=== PATIENT | female | born 1980 | race Caucasian/White ===

== ENCOUNTER 2021-12-20 15:56 | Outpatient (CLI) | payer BC, SELFPAY ==
[2021-12-20 18:37] LABS: HIV 1/2/P24 Combo Screen* Negative (Negative)
[2021-12-20 19:51] LABS: GC DNA Amplified* NOT DETECTED (No Detected)
[2021-12-20 20:32] LABS: Chlamydia DNA Amplified* DETECTED (No Detected)
== END 2021-12-20 15:57 | disposition home or self-care (01) ==
PROVIDERS: PCP Family Medicine; Visit Provider Nurse Practitioner Family
DX: Z11.3 Encounter for screening for infections with a predominantly sexual mode of transmission (principal)
CPT/HCPCS: 86703; 87491; 87591

== ENCOUNTER 2022-01-21 14:08 | Outpatient (CLI) | payer BC, SELFPAY ==
[2022-01-21 18:11] LABS: SARS PCR* Negative SARS-CoV-2 (Negative)
== END 2022-01-21 14:09 | disposition home or self-care (01) ==
LOC: LONREF 14:09
PROVIDERS: PCP Family Medicine; Visit Provider Family Medicine
DX: U07.1 COVID-19 (principal)
CPT/HCPCS: 87635

== ENCOUNTER 2022-05-28 14:40 | Outpatient (CLI) | payer BC, SELFPAY ==
[2022-05-28 18:58] LABS: Chlamydia DNA Amplified* NOT DETECTED (No Detected); GC DNA Amplified* NOT DETECTED (No Detected)
== END 2022-05-28 14:41 | disposition home or self-care (01) ==
PROVIDERS: PCP Family Medicine; Visit Provider Family Medicine
DX: Z11.3 Encounter for screening for infections with a predominantly sexual mode of transmission (principal)
CPT/HCPCS: 87491; 87591

== ENCOUNTER 2022-06-25 14:58 | Outpatient (CLI) | payer BC, SELFPAY ==
[2022-06-25 18:56] LABS: Chlamydia DNA Amplified* NOT DETECTED (No Detected); GC DNA Amplified* NOT DETECTED (No Detected)
== END 2022-06-25 14:59 | disposition home or self-care (01) ==
LOC: LONREF 14:58
PROVIDERS: PCP Family Medicine; Visit Provider Family Medicine
DX: Z11.3 Encounter for screening for infections with a predominantly sexual mode of transmission (principal)
CPT/HCPCS: 87491; 87591

== ENCOUNTER 2022-12-06 09:58 | Outpatient (CLI) | payer BC, SELFPAY ==
[2022-12-06 13:55] LABS: Chlamydia DNA Amplified* NOT DETECTED (No Detected); GC DNA Amplified* NOT DETECTED (No Detected)
== END 2022-12-06 09:59 | disposition home or self-care (01) ==
LOC: LONREF 09:59
PROVIDERS: PCP Family Medicine; Visit Provider Family Medicine
DX: Z11.3 Encounter for screening for infections with a predominantly sexual mode of transmission (principal)
CPT/HCPCS: 87086; 87491; 87591

== ENCOUNTER 2023-05-07 14:41 | Emergency (ER) | payer BC, SELFPAY ==
[2023-05-07] VITALS (8 sets, daily range): BP systolic 172; BP diastolic 101; PULSE 79–102; RESP 20; TEMP 36.6; O2SAT 90–100; BMI 39.2
--- NOTE | 2023-05-07 14:53 | CRLHL7_ITS ---
For Patients: As a result of the Century Cures Act, medical imaging exams and procedure reports are released immediately into your electronic medical record. You may view this report before your referring provider. If you have questions, please contact your health care provider. INDICATION: Headache. TECHNIQUE: Noncontrast CT of the head with multiplanar reformat in bone and soft tissue algorithms. COMPARISON: None available. FINDINGS: No acute intracranial hemorrhage. The pierce-white matter interface is preserved. The ventricles are normal in size. No suspicious calvarial lesion. Unremarkable orbits. Diffuse maxillary ethmoid sinus mucosal thickening and opacification. IMPRESSION: 1. No acute intracranial abnormality. 2. Diffuse maxillary and ethmoid sinus mucosal thickening and opacification perhaps indicating acute sinus disease. Please note that all CT scans at this facility use dose modulation, iterative reconstruction, and/or weight-based dosing when appropriate to reduce radiation dose to as low as reasonably achievable. Dictated by Dominic Sequeira MD @ 05/07/2023 4:26:51 PM (Electronically Signed)
--- NOTE | 2023-05-07 14:53 | CRLHL7_ITS ---
For Patients: As a result of the Century Cures Act, medical imaging exams and procedure reports are released immediately into your electronic medical record. You may view this report before your referring provider. If you have questions, please contact your health care provider. INDICATION: Right maxillary, palpable right cervical lymph node. TECHNIQUE: CT of the neck from the skull base to the thoracic inlet following administration of 100 cc iodinated intravenous contrast. COMPARISON: None available. FINDINGS: Mild symmetric prominence and enhancement of the palatine and lingual tonsils. No discrete rim enhancing fluid collection. Multiple bilateral prominent cervical lymph nodes, for reference a right retropharyngeal node measuring to 1.3 cm (series 5, image 21), a right submandibular node measuring up to 1.5 cm (series 5, image 37), and a left level IIa node measuring to 1.7 cm in short axis (series 5, image 37). Normal parotid and submandibular glands. Unremarkable thyroid. The lung apices are clear. The major vascular structures are normal in appearance. No suspicious osseous lesion is identified. IMPRESSION: 1. Mild symmetric prominence and enhancement of the palatine and lingual tonsils suggesting acute tonsillitis. 2. No discrete rim enhancing or drainable fluid collection. 3. Multiple prominent bilateral cervical lymph nodes, nonspecific but likely reactive. Please note that all CT scans at this facility use dose modulation, iterative reconstruction, and/or weight-based dosing when appropriate to reduce radiation dose to as low as reasonably achievable. Dictated by Dominic Sequeira MD @ 05/07/2023 4:44:45 PM (Electronically Signed)
--- NOTE | 2023-05-07 14:53 | CRLHL7_ITS ---
For Patients: As a result of the Century Cures Act, medical imaging exams and procedure reports are released immediately into your electronic medical record. You may view this report before your referring provider. If you have questions, please contact your health care provider. INDICATION: Right maxillary pain. TECHNIQUE: Thin-slice noncontrast CT of the paranasal sinuses with bone and soft tissue reconstruction. COMPARISON: None available at this institution. FINDINGS: Frontal sinuses are predominantly clear with mucosal thickening and apposition in the frontal recesses. The agger nasi cells are clear. Diffuse mucosal thickening throughout and near complete opacification of the maxillary sinuses with gaseous secretions. Mild bilateral maxillary sinus wall hyperostosis. The ostiomeatal units are opacified. Diffuse mucosal thickening and opacification throughout the anterior ethmoid air cells with associated hyperostosis. Hyperostosis of the bilateral middle and inferior turbinates. Sphenoid sinuses are clear with mucosal apposition at the sphenoid ostia. Mild deviation of the nasal septum to the left with a 4 mm leftward projecting septal spur. No bony or soft tissue abnormality. IMPRESSION: 1. Findings as above consistent with acute on chronic ostiomeatal unit pattern of sinusitis. 2. Mild leftward deviation of the nasal septum with a 4 mm septal spur. Please note that all CT scans at this facility use dose modulation, iterative reconstruction, and/or weight-based dosing when appropriate to reduce radiation dose to as low as reasonably achievable. Dictated by Dominic Sequeira MD @ 05/07/2023 4:35:48 PM (Electronically Signed)
--- NOTE | 2023-05-07 15:02 | ED_ITS ---
HPI - General Adult General Chief complaint: Headache/Migraine <Tylor Pizarro MD - Last Filed: 05/12/23 08:26> Stated complaint: Pain R side of head-severe headache-vision blurred <Tylor Pizarro MD - Last Filed: 05/12/23 08:26> Time Seen by Provider: 05/07/23 14:46 <Tylor Pizarro MD - Last Filed: 05/12/23 08:26> History of Present Illness HPI narrative: Patient is a 42-year-old female who was at work in [place] and over the last few days has had a frontal tension type headache. She gets headaches occasionally. She developed more right-sided jaw neck and temporal and parietal pain on the right today and has been quite significant she feels a little better now but still bothering her. She has had a node in her angle of her jaw that is been present for some months and is concerned about that as well . she denies specifically fever, chills, cough, chest pain or neurologic complaint. Patient has had a history of sinusitis in the past and has had similar presentation with sinusitis. Patient reports ovaries have been removed and denies <Tylor Pizarro MD - Last Filed: 05/12/23 08:26> Related Data Home medications: Previous Rx's Medication Instructions Recorded albuterol sulfate 90 mcg/actuation 2 puff inhalation Q4H PRN 05/28/22 aerosol inhaler (Ventolin HFA) shortness of breath or wheezing #8.5 grams amoxicillin 875 mg-potassium 1 tab PO Q12H #14 tabs 09/05/22 clavulanate 125 mg tablet cetirizine 10 mg tablet (Zyrtec) 10 mg PO QDAY #30 tabs 09/05/22 amoxicillin 875 mg-potassium 1 tab PO BID #28 tabs 12/06/22 clavulanate 125 mg tablet metronidazole 500 mg tablet 500 mg PO BID #14 tabs 12/06/22 prednisone 20 mg tablet 20 mg PO QDAY #7 tabs 12/06/22 amoxicillin 875 mg-potassium 1 tab PO BID 10 days #20 tabs 05/07/23 clavulanate 125 mg tablet methylprednisolone 4 mg tablets in See Rx Instructions PO .COMPLEX 05/07/23 a dose pack (Medrol (Carlos)) #21 ea <Tylor Pizarro MD - Last Filed: 05/12/23 08:26> Allergies/adverse reactions: Allergies Allergy/AdvReac Type Severity Reaction Status Date / Time No Known Allergies Allergy Unknown Unknown Uncoded 05/07/23 16:21 <Tylor Pizarro MD - Last Filed: 05/12/23 08:26> Review of Systems Status of ROS: Reports: 6 or more systems reviewed and unremarkable except as noted in History and below <Tylor Pizarro MD - Last Filed: 05/12/23 08:26> Narrative: No nuchal rigidity <Tylor Pizarro MD - Last Filed: 05/12/23 08:26> PFSH PFSH Surgical History: Surgical History Status post surgical removal of ganglion cyst ?Z98.890 - Other specified postprocedural states (ICD-10) Status post right oophorectomy ?Z90.721 - Acquired absence of ovaries, unilateral (ICD-10) Status post cholecystectomy ?Z90.49 - Acquired absence of other specified parts of digestive tract (ICD- 10) <Tylor Pizarro MD - Last Filed: 05/12/23 08:26> Social History: Social History Smoking Status: Current every day smoker What tobacco products do you use: cigarettes Smoking packs per day: 0.5 Smoking cigarettes per day: 10.0 Do you use any of these nicotine containing products: None Second hand tobacco smoke exposure: No How often do you have a drink containing alcohol: monthly or less How many standard drinks containing alcohol do you have on a typical day: 1 or 2 How often do you have six or more drinks on one occasion: Never AUDIT-C Alcohol total score: 1 Non-prescribed substance use: marijuana (any form) and crack/cocaine service: No <Tylor Pizarro MD - Last Filed: 05/12/23 08:26> Exam Narrative: Exam Narrative: Objective: Patient's vital signs show elevated blood pressure, she is afebrile. O2 sat is 90% on room air HEENT shows pupils react to light no facial asymmetry no palpable tenderness along the temporal area Neck is supple she has a prominent firm node in the angle of the jaw. Pulse regular Abdomen benign soft Extremities neurologic nonfocal upper lower extremities normal strength sensation <Tylor Pizarro MD - Last Filed: 05/12/23 08:26> Const: Vital Signs, click to edit/add: Vital Signs - 24 hr 05/07/23 14:48 05/07/23 15:34 05/07/23 16:10 Temperature 98 F Pulse Rate 82 86 Pulse Rate [Pulse Oximeter] 102 H Respiratory Rate 20 Blood Pressure [Ri ght Forearm] 172/101 H Pulse Oximetry 98 98 100 Oxygen Delivery Me thod Room Air 05/07/23 16:15 05/07/23 16:30 05/07/23 16:45 Temperature Pulse Rate 79 86 82 Pulse Rate [Pulse Oximeter] Respiratory Rate Blood Pressure [Ri ght Forearm] Pulse Oximetry 98 90 96 Oxygen Delivery Me thod 05/07/23 17:00 Temperature Pulse Rate 86 Pulse Rate [Pulse Oximeter] Respiratory Rate Blood Pressure [Ri ght Forearm] Pulse Oximetry 92 Oxygen Delivery Me thod <Tylor Pizarro MD - Last Filed: 05/12/23 08:26> Vital Signs, click to edit/add: Vital Signs - 24 hr 05/07/23 14:48 05/07/23 15:34 05/07/23 16:10 Temperature 98 F Pulse Rate 82 86 Pulse Rate [Pulse Oximeter] 102 H Respiratory Rate 20 Blood Pressure [Ri ght Forearm] 172/101 H Pulse Oximetry 98 98 100 Oxygen Delivery Me thod Room Air 05/07/23 16:15 05/07/23 16:30 05/07/23 16:45 Temperature Pulse Rate 79 86 82 Pulse Rate [Pulse Oximeter] Respiratory Rate Blood Pressure [Ri ght Forearm] Pulse Oximetry 98 90 96 Oxygen Delivery Me thod 05/07/23 17:00 Temperature Pulse Rate 86 Pulse Rate [Pulse Oximeter] Respiratory Rate Blood Pressure [Ri ght Forearm] Pulse Oximetry 92 Oxygen Delivery Me thod <Jesus Colón MD - Last Filed: 05/07/23 17:14> Course Vital Signs Vital signs: Initial Vital Signs Temperature 98 F 05/07/23 14:48 Temperature Source Temporal Artery Scan 05/07/23 14:48 Pulse Rate 102 H 05/07/23 14:48 Pulse Rhythm Regular 05/07/23 14:48 Respiratory Rate 20 05/07/23 14:48 Blood Pressure 172/101 H 05/07/23 14:48 Blood Pressure Mean 124 H 05/07/23 14:48 Blood Pressure Position Supine 05/07/23 14:48 Pulse Oximetry 98 05/07/23 14:48 Oxygen Delivery Method Room Air 05/07/23 14:48 Vital Signs Temperature 98 F 05/07/23 14:48 Pulse Rate 102 H 05/07/23 14:48 Respiratory Rate 20 05/07/23 14:48 Blood Pressure 172/101 H 05/07/23 14:48 Pulse Oximetry 98 05/07/23 14:48 Oxygen Delivery Method Room Air 05/07/23 14:48 Temperature 98 F 05/07/23 14:48 Pulse Rate 81 05/07/23 17:15 Respiratory Rate 20 05/07/23 14:48 Blood Pressure 172/101 H 05/07/23 14:48 Pulse Oximetry 99 05/07/23 17:15 Oxygen Delivery Method Room Air 05/07/23 14:48 <Tylor Pizarro MD - Last Filed: 05/12/23 08:26> Initial Vital Signs Temperature 98 F 05/07/23 14:48 Temperature Source Temporal Artery Scan 05/07/23 14:48 Pulse Rate 102 H 05/07/23 14:48 Pulse Rhythm Regular 05/07/23 14:48 Respiratory Rate 20 05/07/23 14:48 Blood Pressure 172/101 H 05/07/23 14:48 Blood Pressure Mean 124 H 05/07/23 14:48 Blood Pressure Position Supine 05/07/23 14:48 Pulse Oximetry 98 05/07/23 14:48 Oxygen Delivery Method Room Air 05/07/23 14:48 Vital Signs Temperature 98 F 05/07/23 14:48 Pulse Rate 102 H 05/07/23 14:48 Respiratory Rate 20 05/07/23 14:48 Blood Pressure 172/101 H 05/07/23 14:48 Pulse Oximetry 98 05/07/23 14:48 Oxygen Delivery Method Room Air 05/07/23 14:48 Temperature 98 F 05/07/23 14:48 Pulse Rate 81 05/07/23 17:15 Respiratory Rate 20 05/07/23 14:48 Blood Pressure 172/101 H 05/07/23 14:48 Pulse Oximetry 99 05/07/23 17:15 Oxygen Delivery Method Room Air 05/07/23 14:48 <Jesus Colón MD - Last Filed: 05/07/23 17:14> Medications Administered Medications: Discontinued Medications Generic Name Dose Route Start Last Admin Trade Name Freq PRN Reason Stop Dose Admin Sodium Chloride 1,000 mls @ 6,000 mls/hr 05/07/23 15:00 05/07/23 17:00 0.9 % Sodium Chloride 1000 Ml IV 05/07/23 15:09 Infused .Q10M RIO Infusion Ketorolac Tromethamine 30 mg 05/07/23 14:54 05/07/23 15:23 Ketorolac 30 Mg/Ml Inj IVP 05/07/23 14:55 30 mg ONCE ONE Administration Morphine Sulfate 4 mg 05/07/23 14:54 05/07/23 15:22 Morphine 4 Mg/Ml Inj IVP 05/07/23 14:55 4 mg ONCE ONE Administration <Tylor Pizarro MD - Last Filed: 05/12/23 08:26> Discontinued Medications Generic Name Dose Route Start Last Admin Trade Name Freq PRN Reason Stop Dose Admin Sodium Chloride 1,000 mls @ 6,000 mls/hr 05/07/23 15:00 05/07/23 17:00 0.9 % Sodium Chloride 1000 Ml IV 05/07/23 15:09 Infused .Q10M RIO Infusion Ketorolac Tromethamine 30 mg 05/07/23 14:54 05/07/23 15:23 Ketorolac 30 Mg/Ml Inj IVP 05/07/23 14:55 30 mg ONCE ONE Administration Morphine Sulfate 4 mg 05/07/23 14:54 05/07/23 15:22 Morphine 4 Mg/Ml Inj IVP 05/07/23 14:55 4 mg ONCE ONE Administration <Jesus Colón MD - Last Filed: 05/07/23 17:14> Medical Decision Making MDM Narrative Medical decision making narrative: 42-year-old female with a has severe right side of her head headache she has mild maxillary sinus tenderness on exam the patient had similar symptoms with sinusitis. I think it be reasonable to do blood work, get a CT of her head and sinuses and pain control with IV morphine, Toradol, fluid. Check laboratory studies. She denies and states she has had her ovaries removed. Will ask her to disposition pending findings and clinical status. confirm this history. Because of the persistence of the neck noted as well will get a soft tissue neck with IV contrast. <Tylor Pizarro MD - Last Filed: 05/12/23 08:26> 42-year-old female with a has severe right side of her head headache she has mild maxillary sinus tenderness on exam the patient had similar symptoms with sinusitis. I think it be reasonable to do blood work, get a CT of her head and sinuses and pain control with IV morphine, Toradol, fluid. Check laboratory studies. She denies and states she has had her ovaries removed. Will ask her to disposition pending findings and clinical status. confirm this history. Because of the persistence of the neck noted as well will get a soft tissue neck with IV contrast. CT imaging of the head shows no acute findings. CT imaging of the sinuses does show evidence of acute sinusitis. Soft tissue neck CT scan shows some lymphadenopathy typical of tonsillitis. She received prescriptions for Augmentin and Medrol Dosepak. <Jesus Colón MD - Last Filed: 05/07/23 17:14> Lab Data Labs: Lab Results 05/07/23 Range/Units 14:50 WBC 10.15 (4.50-11.00) K/uL RBC 5.01 (4.00-5.20) m/uL Hgb 14.1 (12.0-16.0) gm/dL Hct 43.0 (33.0-51.0) % MCV 86 (80-100) fL MCH 28 (26-34) pg MCHC 33 (32-36) gm/dL RDW Coeff of [place] 13.0 (11.5-15.5) % Plt Count 383 (140-440) K/uL Neut % (Auto) 66.9 (42.0-72.0) % Lymph % (Auto) 21.9 (20-44) % [place] % (Auto) 5.4 (0.0-11.0) % Eos % (Auto) 5.3 (0.0-7.0) % Baso % (Auto) 0.5 (0.0-3.0) % Neut # (Auto) 6.79 (1.7-7.0) K/uL Lymph # (Auto) 2.22 (0.90-2.90) K/uL [place] # (Auto) 0.50 (0.00-0.90) K/UL Eos # (Auto) 0.54 H (0.00-0.50) K/uL Baso # (Auto) 0.05 (0.00-0.30) K/uL Abs Immat Gran (auto) 0.00 (0.00-0.30) K/uL Imm/Tot Granulo (auto) 0.0 % Sodium 141 (135-149) mmol/L Potassium 3.7 (3.6-5.1) mmol/L Chloride 106 (96-114) mmol/L Carbon Dioxide 27 (20-32) mmol/L Anion Gap 8 (7-15) mEq/L BUN 14 (5-24) mg/dL Creatinine 0.6 (0.5-1.5) mg/dL Estimated Creat Clear 117.57 Estimated GFR 114 ml/min Glucose 112 (60-115) mg/dL Calcium 8.8 (8.4-10.6) mg/dL C-Reactive Protein 1.9 H (0.5-1.0) mg/dL <Tylor Pizarro MD - Last Filed: 05/12/23 08:26> Lab Results 05/07/23 Range/Units 14:50 WBC 10.15 (4.50-11.00) K/uL RBC 5.01 (4.00-5.20) m/uL Hgb 14.1 (12.0-16.0) gm/dL Hct 43.0 (33.0-51.0) % MCV 86 (80-100) fL MCH 28 (26-34) pg MCHC 33 (32-36) gm/dL RDW Coeff of [place] 13.0 (11.5-15.5) % Plt Count 383 (140-440) K/uL Neut % (Auto) 66.9 (42.0-72.0) % Lymph % (Auto) 21.9 (20-44) % [place] % (Auto) 5.4 (0.0-11.0) % Eos % (Auto) 5.3 (0.0-7.0) % Baso % (Auto) 0.5 (0.0-3.0) % Neut # (Auto) 6.79 (1.7-7.0) K/uL Lymph # (Auto) 2.22 (0.90-2.90) K/uL [place] # (Auto) 0.50 (0.00-0.90) K/UL Eos # (Auto) 0.54 H (0.00-0.50) K/uL Baso # (Auto) 0.05 (0.00-0.30) K/uL Abs Immat Gran (auto) 0.00 (0.00-0.30) K/uL Imm/Tot Granulo (auto) 0.0 % Sodium 141 (135-149) mmol/L Potassium 3.7 (3.6-5.1) mmol/L Chloride 106 (96-114) mmol/L Carbon Dioxide 27 (20-32) mmol/L Anion Gap 8 (7-15) mEq/L BUN 14 (5-24) mg/dL Creatinine 0.6 (0.5-1.5) mg/dL Estimated Creat Clear 117.57 Estimated GFR 114 ml/min Glucose 112 (60-115) mg/dL Calcium 8.8 (8.4-10.6) mg/dL C-Reactive Protein 1.9 H (0.5-1.0) mg/dL <Jesus Colón MD - Last Filed: 05/07/23 17:14> Discharge Plan Discharge Clinical Impression: Acute facial pain, Sinusitis, Enlarged lymph node in neck <Tylor Pizarro MD - Last Filed: 05/12/23 08:26> Patient Disposition: Home, Self-Care <Tylor Pizarro MD - Last Filed: 05/12/23 08:26> Condition: Stable <Tylor Pizarro MD - Last Filed: 05/12/23 08:26> Additional Instructions: Take medication as prescribed. Follow up with MD or return if worsening. <Tylor Pizarro MD - Last Filed: 05/12/23 08:26> Prescriptions: New methylprednisolone [Medrol (Carlos)] 4 mg tablets,dose pack See Rx Instructions .ROUTE .COMPLEX Qty: 21 0RF Rx Instructions: orally per package directions amoxicillin-pot clavulanate 875-125 mg tablet 1 tab PO BID 10 Days Qty: 20 0RF No Action albuterol sulfate [Ventolin HFA] 90 mcg/actuation HFA aerosol inhaler 2 puff inhalation Q4H PRN (Reason: shortness of breath or wheezing) Qty: 8.5 5RF cetirizine [Zyrtec] 10 mg tablet 10 mg PO QDAY Qty: 30 5RF amoxicillin-pot clavulanate 875-125 mg tablet 1 tab PO Q12H Qty: 14 0RF metronidazole 500 mg tablet 500 mg PO BID Qty: 14 0RF amoxicillin-pot clavulanate 875-125 mg tablet 1 tab PO BID Qty: 28 0RF prednisone 20 mg tablet 20 mg PO QDAY Qty: 7 0RF <Tylor Pizarro MD - Last Filed: 05/12/23 08:26> Follow Up/Referrals: Jesus Smiley MD [Primary Care Provider] - <Tylor Pizarro MD - Last Filed: 05/12/23 08:26> [facility] <Tylor Pizarro MD - Last Filed: 05/12/23 08:26>
[2023-05-07] MEDS: 0.9 % SODIUM CHLORIDE 1000 ml 1,000 ML 6000 ML IV (15:16)
[2023-05-07] MEDS: MORPHINE 4 MG/ML INJ IVP (15:22)
[2023-05-07] MEDS: KETOROLAC 30 MG/ML inj IVP (15:23)
[2023-05-07 15:35] LABS: Basophils Absolute Auto 0.05 K/uL (0.00-0.30); Basophils Percent Auto 0.5 % (0.0-3.0); Eosinophils Absolute Auto 0.54 K/uL (0.00-0.50); Eosinophils Percent Auto 5.3 % (0.0-7.0); Hemoglobin* 14.1 gm/dL (12.0-16.0); Lymphocytes Absolute Auto 2.22 K/uL (0.90-2.90); Lymphocytes Percent Auto 21.9 % (20-44); Mean Corpuscular HGB Conc 33 gm/dL (32-36); Mean Corpuscular Hemoglobin 28 pg (26-34); Mean Corpuscular Volume 86 fL (80-100); Monocytes Percent Auto 5.4 % (0.0-11.0); Neutrophils Absolute Auto 6.79 K/uL (1.7-7.0); Neutrophils Percent Auto 66.9 % (42.0-72.0); Platelet Count* 383 K/uL (140-440); Red Blood Count 5.01 m/uL (4.00-5.20); White Blood Count* 10.15 K/uL (4.50-11.00)
[2023-05-07 15:55] LABS: Chloride* 106 mmol/L (96-114); Potassium* 3.7 mmol/L (3.6-5.1); Sodium* 141 mmol/L (135-149)
[2023-05-07 15:58] LABS: Creatinine* 0.6 mg/dL (0.5-1.5); Est. Creatinine Clearance* 117.57; Estimated Glomerular Filt Rate 114 ml/min
[2023-05-07 15:59] LABS: Anion Gap 8 mEq/L (7-15); Blood Urea Nitrogen* 14 mg/dL (5-24); Calcium* 8.8 mg/dL (8.4-10.6); Carbon Dioxide* 27 mmol/L (20-32); Glucose* 112 mg/dL (60-115)
[2023-05-07 16:02] LABS: C Reactive Protein* 1.9 mg/dL (0.5-1.0)
[2023-05-07 16:03] LABS: Slide Review Reflex No
== END 2023-05-07 17:29 | disposition home or self-care (01) ==
PROVIDERS: Emergency Provider Family Medicine; PCP Family Medicine
DX: J32.9 Chronic sinusitis, unspecified (principal); R51.9 Headache, unspecified; R59.9 Enlarged lymph nodes, unspecified
CPT/HCPCS: 36415; 70450; 70486; 70491; 80048; 85025; 86140; 96361; 96374; 96375; 99284; 99285; J1885; J2270; J7030; Q9967

== ENCOUNTER 2023-06-14 13:23 | Outpatient (CLI) | payer BC, SELFPAY | END 2023-06-14 13:24 | disposition home or self-care (01) | LOC: AMB 06-29 07:02 | PROVIDERS: PCP Family Medicine; Visit Provider Emergency Medicine Emergency Medical Services | DX: S61.051A Open bite of right thumb without damage to nail, initial encounter (principal); S51.852A Open bite of left forearm, initial encounter; S81.851A Open bite, right lower leg, initial encounter; S81.852A Open bite, left lower leg, initial encounter; W54.0XXA Bitten by dog, initial encounter; Y92.007 Garden or yard of unspecified non-institutional (private) residence as the place of occurrence of the external cause | CPT/HCPCS: A0998 ==

== ENCOUNTER 2023-06-14 14:24 | Emergency (ER) | payer BC, SELFPAY ==
[2023-06-14 14:38] VITALS: BP 133/85; PULSE 83; RESP 22; TEMP 37.1; O2SAT 95; BMI 37.6
--- NOTE | 2023-06-14 14:51 | ED.NURSE ---
Called dispatch today to report dog bite. Per PD, they are aware as EMS was on scene at the home. No further follow up needed.
--- NOTE | 2023-06-14 15:30 | ED.NURSE ---
[facility] plastics paged. Plastics recreational programs director provider is Dr. Joseph Sarmiento. Pager number is [phone]
--- NOTE | 2023-06-14 15:34 | ED_ITS ---
HPI - General Adult General Chief complaint: Animal Bite Stated complaint: Dog attack Time Seen by Provider: 06/14/23 14:35 Source: patient Mode of arrival: ambulatory Limitations: no limitations History of Present Illness HPI narrative: 42-year-old female presenting today after being bitten by her dogs. She states that she has 2 dogs do not get along and they were fighting and she tried to get in between them. She suffered multiple dog bites. Last tetanus shot was in 2011 Related Data Previous Rx's Medication Instructions Recorded cetirizine 10 mg tablet (Zyrtec) 10 mg PO QDAY #30 tabs 09/05/22 amoxicillin 875 mg-potassium 1 tab PO BID #10 tabs 06/14/23 clavulanate 125 mg tablet Allergies Allergy/AdvReac Type Severity Reaction Status Date / Time No Known Allergies Allergy Unknown Unknown Uncoded 05/07/23 16:21 Review of Systems Status of ROS: Reports: 6 or more systems reviewed and unremarkable except as noted in History and below PFSH PFSH Surgical History Status post surgical removal of ganglion cyst ?Z98.890 - Other specified postprocedural states (ICD-10) Status post right oophorectomy ?Z90.721 - Acquired absence of ovaries, unilateral (ICD-10) Status post cholecystectomy ?Z90.49 - Acquired absence of other specified parts of digestive tract (ICD- 10) Social History Smoking Status: Current every day smoker What tobacco products do you use: cigarettes Smoking packs per day: 0.5 Smoking cigarettes per day: 10.0 Do you use any of these nicotine containing products: None Second hand tobacco smoke exposure: No How often do you have a drink containing alcohol: monthly or less How many standard drinks containing alcohol do you have on a typical day: 1 or 2 How often do you have six or more drinks on one occasion: Never AUDIT-C Alcohol total score: 1 Non-prescribed substance use: marijuana (any form) and crack/cocaine service: No Exam Narrative: Exam Narrative: Obese, well-developed patient, crying in distress. Alert and oriented. Is cooperating but is not able to sit still. HEENT: Normocephalic atraumatic. Pupils are equally round reactive to light. Extraocular muscles are intact. Conjunctivae are moist without any icterus noted. Moist mucous membranes. Skin: Patient has bite hernandez of the upper left arm. One in 6 mm and one is 8 mm on the anterior surface of the upper arm. There is surrounding ecchymosis on both bite hernandez and tenderness. There is no significant swelling. She has 3 bite hernandez on the left foot: A superficial 1 that does not penetrate through the dermis entirely approximate 1 cm in length, there are 2 on the dorsal surface of the foot: 5mm, 6mm. He is also have surrounding ecchymosis and tenderness with mild swelling. Lastly: She has the tip of the right thumb pad completely avulsed, the tip of the nail gone, the rest of the nail is in place. Const: Vital Signs, click to edit/add: Vital Signs - 24 hr 06/14/23 14:38 Temperature 98.8 F Pulse Rate [Pulse Oximeter] 83 Respiratory Rate 22 Blood Pressure [Ri ght Upper Arm] 133/85 Pulse Oximetry 95 Oxygen Delivery Me thod Room Air Course Course ED Course: Digital block was done for the thumb in the wound was then cleansed and explored. Two hemostatic sutures with 3 0 Vicryl were placed at the tip of the thumb to help with an arterial bleed. Good hemostasis was achieved. The larger laceration on the dorsal surface of the foot was anesthetized along with the 2 lacerations of the arm, all lacerations of the foot and all lacerations of the arm were cleaned. One suture was placed in each of the arm lacerations as the skin was gaping open with subcutaneous fat extruding through, as well as 1 suture on the larger laceration on the dorsal surface of the foot. The remaining lacerations were treated with Steri-Strips. Patient was able to calm down after local anesthesia was provided. I did consult with Dr. Hull, hand surgery at [facility], who recommended healing by secondary intention for the thumb. Vital Signs Vital signs: Initial Vital Signs Temperature 98.8 F 06/14/23 14:38 Temperature Source Temporal Artery Scan 06/14/23 14:38 Pulse Rate 83 06/14/23 14:38 Respiratory Rate 22 06/14/23 14:38 Blood Pressure 133/85 06/14/23 14:38 Blood Pressure Mean 101 06/14/23 14:38 Blood Pressure Position Sitting 06/14/23 14:38 Pulse Oximetry 95 06/14/23 14:38 Oxygen Delivery Method Room Air 06/14/23 14:38 Vital Signs Temperature 98.8 F 06/14/23 14:38 Pulse Rate 83 06/14/23 14:38 Respiratory Rate 22 06/14/23 14:38 Blood Pressure 133/85 06/14/23 14:38 Pulse Oximetry 95 06/14/23 14:38 Oxygen Delivery Method Room Air 06/14/23 14:38 Temperature 98.8 F 06/14/23 14:38 Pulse Rate 83 06/14/23 14:38 Respiratory Rate 22 06/14/23 14:38 Blood Pressure 133/85 06/14/23 14:38 Pulse Oximetry 95 06/14/23 14:38 Oxygen Delivery Method Room Air 06/14/23 14:38 Medications Administered Medications: Discontinued Medications Generic Name Dose Route Start Last Admin Trade Name Freq PRN Reason Stop Dose Admin Diphtheria/Tetanus/Acell Pertussis 0.5 ml 06/14/23 16:05 06/14/23 16:09 Tetanus/Diphth/Pertussis 0.5 Ml Syringe IM 06/14/23 16:06 Not Given .ONCE ONE Medical Decision Making MDM Narrative Medical decision making narrative: 42-year-old male status post multiple dog bites. We discussed that she will have increased pain secondary to the crushing nature of dog bites. Discussed NSAID use and Tylenol. We discussed wound hygiene, signs symptoms of infection reasons to return for follow-up. Suture removal in 1 week. Patient will be placed on Augmentin. Patient refused a tetanus immunization in the ER today. Discharge Plan Discharge Clinical Impression: Dog bite Patient Disposition: Home, Self-Care Condition: Improved Additional Instructions: Expect increasing soreness in the areas that the dog bit you in the next coming days. Okay to use ibuprofen and Tylenol as needed/as directed per the bottle. Okay to ice tender areas for 20 minutes at a time. Do not apply ice directly to skin. Sutures should be removed in approximately 1 week with your primary care provider. Keep all bites clean and dry. Okay to shower like normal but do not soak them. Watch for signs of infection which include redness around any bite hernandez that spreads. If this occurs follow-up in the ED right away. Take all antibiotics as prescribed. Prescriptions: New amoxicillin-pot clavulanate 875-125 mg tablet 1 tab PO BID Qty: 10 0RF No Action cetirizine [Zyrtec] 10 mg tablet 10 mg PO QDAY Qty: 30 5RF Follow Up/Referrals: Jesus Smiley MD [Primary Care Provider] - Stand Alone Forms: [employer] Info Instructions
--- NOTE | 2023-06-14 15:47 | ED.NURSE ---
TDap last done 01/07/2012.
--- NOTE | 2023-06-14 16:09 | ED.NURSE ---
Patient declined TDap vaccine. VIS provided for her to review.
--- NOTE | 2023-06-14 16:43 | ED.NURSE ---
[facility] hand surgery team paged at this time given no return call from [facility].
[2023-06-14] MEDS: IBUPROFEN 200 MG TABLET 600 MG PO (17:00)
== END 2023-06-14 17:00 | disposition home or self-care (01) ==
LOC: ED 15:47
PROVIDERS: Emergency Provider Family Medicine; PCP Family Medicine
DX: S41.152A Open bite of left upper arm, initial encounter (principal); S91.352A Open bite, left foot, initial encounter; W54.0XXA Bitten by dog, initial encounter; S60.111A Contusion of right thumb with damage to nail, initial encounter
CPT/HCPCS: 12001; 99284; A9270

== ENCOUNTER 2023-06-16 15:27 | Outpatient (CLI) | payer BC, SELFPAY ==
[2023-06-17] LABS: Chlamydia DNA Amplified* Not Detected (No Detected); GC DNA Amplified* Not Detected (No Detected)
== END 2023-06-16 15:28 | disposition home or self-care (01) ==
PROVIDERS: PCP Family Medicine; Visit Provider Family Medicine
DX: Z11.3 Encounter for screening for infections with a predominantly sexual mode of transmission (principal)
CPT/HCPCS: 87491; 87591

== ENCOUNTER 2023-11-27 15:51 | Emergency (ER) | payer OTHER, SELFPAY ==
[2023-11-27 16:06] VITALS: BP 138/97; PULSE 88; RESP 20; TEMP 35.6; O2SAT 100; BMI 39.2
--- NOTE | 2023-11-27 18:11 | ED.GENADULT ---
HPI - General Adult General Chief complaint: Dizziness/Vertigo Stated complaint: Dizzy, blurred vision Time Seen by Provider: 11/27/23 17:25 Source: patient Mode of arrival: ambulatory Limitations: no limitations History of Present Illness HPI narrative: 43-year-old female coming in today after an episode of vertigo while she was at work. Patient states that all the sudden she put her head down on her desk and the room started to spin. She really can not tell me how long this lasted for. When it occurred she felt slightly nauseated but did not vomit. She denies any recent illness. She stated that if she stood still, the sensation of the room spinning would pass but if she looked down the sensation would return. She denies a headache. She states that then she laid on the floor at work, unknown amount of time, and the sensation past. She came in for evaluation. She states that she is completely asymptomatic at this time. Related Data Previous Rx's ?Medication ?Instructions ?Recorded cetirizine 10 mg tablet (Zyrtec) 10 mg PO QDAY #30 tabs 09/05/22 amoxicillin 875 mg-potassium 1 tab PO BID #20 tabs 06/24/23 clavulanate 125 mg tablet fluconazole 150 mg tablet 150 mg PO Q3D 2 doses #2 tabs 06/24/23 metronidazole 500 mg tablet 500 mg PO TID #21 tabs 06/24/23 Allergies Allergy/AdvReac Type Severity Reaction Status Date / Time No Known Allergies Allergy Unknown Unknown Uncoded 06/24/23 12:46 Review of Systems Status of ROS: Reports: 10 or more systems reviewed and unremarkable except as noted in History and below [facility] Surgical History Status post surgical removal of ganglion cyst ?Z98.890 - Other specified postprocedural states (ICD-10) Status post right oophorectomy ?Z90.721 - Acquired absence of ovaries, unilateral (ICD-10) Status post cholecystectomy ?Z90.49 - Acquired absence of other specified parts of digestive tract (ICD-10) Social History Smoking Status: Current every day smoker What tobacco products do you use: cigarettes Smoking packs per day: 0.5 Smoking cigarettes per day: 10.0 Do you use any of these nicotine containing products: None Second hand tobacco smoke exposure: No How often do you have a drink containing alcohol: monthly or less How many standard drinks containing alcohol do you have on a typical day: 1 or 2 How often do you have six or more drinks on one occasion: Never AUDIT-C Alcohol total score: 1 Non-prescribed substance use: marijuana (any form) and crack/cocaine service: No Exam Narrative: Exam Narrative: Well-nourished well-developed patient in no acute distress. Alert and oriented. Answers questions appropriately. Mood and affect are appropriate. Thoughts are goal oriented and rational. No tangential or magical thinking noted. Patient speaks in full sentences without needing to catch her breath. Speech is not slurred or pressured. HEENT: Normocephalic atraumatic. Pupils are equally round reactive to light. Extraocular muscles are intact. Conjunctivae are moist without any icterus noted. Moist mucous membranes. Posterior pharynx is normal. Neck is soft without any lymphadenopathy or thyromegaly. No masses are appreciated. Cardiovascular: Heart is regular rate and rhythm S1 and S2 are present without any murmurs. Lungs: Clear to auscultation bilaterally no wheezes rhonchi or rales are appreciated. Patient takes deep breaths without any discomfort. Extremities: Bilateral lower extremities are without edema. Skin: Well perfused without any obvious rashes. Strength is 5/5 of the upper and lower extremities. Reflexes are 2+ and symmetric at the knees. Cranial nerves 3-12 are normal. There is no nystagmus either horizontally or vertically. Gait is normal. I cannot recreate her symptoms. Const: Vital Signs, click to edit/add: Vital Signs - 24 hr 11/27/23 16:06 Temperature 96.0 F L Pulse Rate [Pulse Oximeter] 88 Respiratory Rate 20 Blood Pressure [Ri t Upper Arm] 138/97 H Pulse Oximetry 100 Oxygen Delivery Me thod Room Air Course Vital Signs Vital signs: Initial Vital Signs Temperature 96.0 F L 11/27/23 16:06 Temperature Source Temporal Artery Scan 11/27/23 16:06 Pulse Rate 88 11/27/23 16:06 Respiratory Rate 20 11/27/23 16:06 Blood Pressure 138/97 H 11/27/23 16:06 Blood Pressure Mean 110 H 11/27/23 16:06 Blood Pressure Position Sitting 11/27/23 16:06 Pulse Oximetry 100 11/27/23 16:06 Oxygen Delivery Method Room Air 11/27/23 16:06 Vital Signs Temperature 96.0 F L 11/27/23 16:06 Pulse Rate 88 11/27/23 16:06 Respiratory Rate 20 11/27/23 16:06 Blood Pressure 138/97 H 11/27/23 16:06 Pulse Oximetry 100 11/27/23 16:06 Oxygen Delivery Method Room Air 11/27/23 16:06 Temperature 96.0 F L 11/27/23 16:06 Pulse Rate 88 11/27/23 16:06 Respiratory Rate 20 11/27/23 16:06 Blood Pressure 138/97 H 11/27/23 16:06 Pulse Oximetry 100 11/27/23 16:06 Oxygen Delivery Method Room Air 11/27/23 16:06 Medical Decision Making MDM Narrative Medical decision making narrative: 43-year-old female with transient vertigo not resolved. No headache, vomiting. Symptoms got better when she was still. At this time I do not think that this wrist presents a stroke or any life-threatening pathology. We discussed hydration, rest and smoking cessation. Discharge Plan Discharge Clinical Impression: Vertigo Patient Disposition: Home, Self-Care Condition: Improved Additional Instructions: Stay well hydrated, get plenty of rest. Recommend smoking cessation. Prescriptions: No Action cetirizine [Zyrtec] 10 mg tablet 10 mg PO QDAY Qty: 30 5RF amoxicillin-pot clavulanate 875-125 mg tablet 1 tab PO BID Qty: 20 0RF metronidazole 500 mg tablet 500 mg PO TID Qty: 21 2RF fluconazole 150 mg tablet 150 mg PO Q3D Qty: 2 0RF Rx Instructions: may repeat second dose 72 hrs after first dose if symptoms persist Follow Up/Referrals: Jesus Smiley MD [Primary Care Provider] - Stand Alone Forms: [employer] Info Instructions
== END 2023-11-27 18:15 | disposition home or self-care (01) ==
LOC: ED 18:15
PROVIDERS: Emergency Provider Family Medicine; PCP Family Medicine
DX: R42 Dizziness and giddiness (principal)
CPT/HCPCS: 99283

== ENCOUNTER 2024-04-26 10:51 | Outpatient (CLI) | payer OTHER, SELFPAY ==
[2024-04-27 00:26] LABS: Chlamydia DNA Amplified* NOT DETECTED (No Detected); GC DNA Amplified* NOT DETECTED (No Detected)
== END 2024-04-26 10:52 | disposition home or self-care (01) ==
PROVIDERS: PCP Family Medicine; Visit Provider Family Medicine
DX: Z11.3 Encounter for screening for infections with a predominantly sexual mode of transmission (principal); R63.5 Abnormal weight gain
CPT/HCPCS: 84439; 84443; 86703; 87491; 87591

== ENCOUNTER 2024-12-31 08:48 | Outpatient (CLI) | payer MEDICAID, SELFPAY ==
[2024-12-31 15:05] LABS: Chlamydia DNA Amplified* NOT DETECTED (No Detected); GC DNA Amplified* NOT DETECTED (No Detected)
== END 2024-12-31 08:49 | disposition home or self-care (01) ==
PROVIDERS: PCP Family Medicine; Visit Provider Family Medicine
DX: Z11.3 Encounter for screening for infections with a predominantly sexual mode of transmission (principal); Z13.6 Encounter for screening for cardiovascular disorders; R53.83 Other fatigue; Z12.31 Encounter for screening mammogram for malignant neoplasm of breast
CPT/HCPCS: 80053; 80061; 86703; 87086; 87491; 87591

== ENCOUNTER 2025-04-22 13:48 | Outpatient (CLI) | payer BC, SELFPAY ==
--- NOTE | 2025-04-22 14:00 | CRLHL7_ITS ---
For Patients: As a result of the Century Cures Act, medical imaging exams and procedure reports are released immediately into your electronic medical record. You may view this report before your referring provider. If you have questions, please contact your health care provider. INDICATION: BILATERAL SCREENING MAMMOGRAM, ASYMPTOMATIC 44 Y/O FEMALE COMPARISON: BASELINE TECHNIQUE: Digital mammogram in CC and MLO projections including computer-aided detection (CAD) and tomosynthesis. BREAST COMPOSITION: There are scattered areas of fibroglandular density. FINDINGS: No suspicious findings. ASSESSMENT: BI-RADS 1 Negative RECOMMENDATION: Annual screening mammogram. A lay language report of this examination will be provided to the patient. Dictated by: Rizwana Chambers MD @ 04/22/2025 15:28:28 (Electronically Signed)
== END 2025-04-22 13:49 | disposition home or self-care (01) ==
PROVIDERS: PCP Family Medicine; Visit Provider Family Medicine
DX: Z12.31 Encounter for screening mammogram for malignant neoplasm of breast (principal)
CPT/HCPCS: 77063; 77067